=== PATIENT | male | born 1970 | race Caucasian/White ===

== ENCOUNTER → 2017-07-22 | Outpatient (CLI) | payer BC ==
--- NOTE | 2017-07-22 17:17 | RAD ---
Right lower [facility] venous duplex study 07/22/2017 Clinical History: Right calf pain and swelling. Technique: Using a combination of real time ultrasound imaging and color-flow and pulse Doppler imaging techniques along with graded compression and augmentation, duplex evaluation of the deep venous system of the right lower extremity was performed. Multiple images were obtained. Findings: There is no sonographic evidence of deep venous thrombosis involving the visualized deep venous structures of right lower extremity. A 6.1 cm popliteal cyst is seen posterior to the right knee. 2 additional complex structures are seen within the medial superior right calf which measure 4.7 and 5.4 cm in size. They could represent extensions of the popliteal cyst inferiorly versus hematomas. Impression: There is no sonographic evidence of deep venous thrombosis involving the visualized venous structures of the right lower extremity.
== END | disposition home or self-care (01) ==
LOC: US 15:22
PROVIDERS: ATTEND Internal Medicine
DX: M79.661 Pain in right lower leg (principal)
CPT/HCPCS: 93971

== ENCOUNTER → 2021-06-18 | Outpatient (CLI) | payer BC ==
[~2021-06-18] MED LIST: AMLO-310 PO; CARV12.511 PO; CETI10TA74 PO; CRAN500T3 PO; GABA-585 PO; MULT-690 PO; OMEG-117 PO; OMEP40CA7 PO; SERT100T PO
--- NOTE | 2021-06-18 12:20 | PDOC1 ---
INITIAL PAIN CONSULT DATE OF SERVICE: DOS: DATE: 06/18/21 TIME: 12:13 CHIEF COMPLAINT: Chief Complaint: Low back and left lower extremity pain HISTORY OF PRESENT ILLNESS: 51-year-old male presents with history of pain low back left lower extremity for about 5 months not the result of any specific injury or accident that he is aware of is getting worse over time. 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 Patient scribes pain is constant sharp stabbing and throbbing the back radiating shooting in the lower extremity on the left side aching and burning changes during the day with activity worse with walking standing changing positions better with sitting or laying down but again wakes him from sleep. Patient been taking Aleve as well as ibuprofen both of which do decrease the pain by about 40% patient is a chiropractic treatment also exercise and using an inversion table at home which decreases the pain significantly. Patient reports his disability rating 0-10 10 being the worst is a 5 with him home responsibilities recreation occupation section here for with self-care social activity and 0 with life support activities. Patient did have MRI scan of the lumbar spine showing multilevel neuroforaminal encroachment most significant L4-5 and L5-S1 levels bilaterally. PAST MEDICAL HISTORY: PMH: Arthritis, hypertension, cigarette smoking quit 20 years ago, left kidney renal cell cancer PREVIOUS SURGERIES: Past Surgical Hx: Right knee meniscus repair CURRENT MEDICATIONS: Current Meds: Active Scripts Medications Dose Route/Sig Max Daily Dose Days Date Category Cranberry (Cranberry Extract) 500 Mg Tablet 1,500 Mg PO DAILY 06/18/21 Reported Zyrtec (Cetirizine Hcl) 10 Mg Tablet 1 Tab PO DAILY 06/18/21 Reported Centrum Silver Men Tablet (Multivit-Min/FA/Lycopen/Lutein) 1 Each Tablet 1 Each PO DAILY 06/18/21 Reported Fish Oil 1,200 mg Softgel ([place]-3/Dha/Epa/Fish Oil) 1 Each Capsule.dr 1 Cap PO BID 30 06/18/21 Reported Carvedilol (Carvedilol) 12.5 Mg Tablet 12.5 Mg PO BIDWMEALS 06/18/21 Reported Amlodipine-Valsartan 10-320 mg (Amlodipine/Valsartan) 1 Each Tablet 1 Tab PO DAILY 30 06/18/21 Reported Omeprazole 40 Mg Capsule. 1 Cap PO DAILY 06/18/21 Reported Zoloft (Sertraline Hcl) 100 Mg Tablet 100 Mg PO BID 06/18/21 Reported Gabapentin (Gabapentin) 100 Mg Capsule 100 Mg PO HS 06/18/21 Reported FAMILY HISTORY: Family Hx: Diabetes, heart disease SOCIAL HISTORY: Social Hx: Patient is alcohol occasionally maybe once or twice a month at the most quit smoking cigarettes many years ago chews tobacco and still continues to and has for 21 years is lives with his spouse has 2 children living at home and 2 grandchildren as well. 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 REVIEW OF SYSTEMS: ROS: Positive for those items mentioned in history of present illness, all systems are reviewed, otherwise negative ,and are complete full and well-documented on patient's chart. PHYSICAL EXAM: VS: Blood pressure is 162/97 pulse 70 respirations 18 temperature 98.1 F height is 6 feet 5 inches weight is 365 pounds PE: PHYSICAL EXAMINATION: GENERAL: The patient is awake, alert, oriented, appropriate, very pleasant in demeanor. HEENT: Shows normocephalic, atraumatic. Extraocular movements are intact and symmetrical. Oral cavity: Mucous membranes moist and pink. Dentition is intact. NECK: Shows anterior throat supple without palpable lymphadenopathy noted. Swallow reflex symmetrical. CHEST: Shows normal on inspection. Breath sounds are clear bilaterally, distant but no rales rhonchi or wheezes auscultated. HEART: Shows S1, S2 clear. No murmurs auscultated. ABDOMEN: Soft, nontender, nondistended, obese. No palpable organomegaly is noted. No rebound or guarding demonstrated. BACK: Shows spine grossly in the midline. Normal-appearing cervical lordotic curvature. There is slightly increased thoracic kyphosis, some minor flattening of the lumbar lordotic curvature. Lumbar paraspinous muscles show symmetrical on inspection, on palpation shows some moderate tenderness diffusely throughout the upper, middle and lower distribution of the paraspinous muscles bilaterally and also into the lower thoracic paraspinous musculature, firm and tender, but without specific trigger points, without radiation of pain. The patient has good rotational motion of the lumbar spine, both laterally as well as extension and flexion without significant difficulty. EXTREMITIES: Lower extremities show deep tendon reflexes 2+ in the patellar and tendo calcaneus tendons. Motor exam is 5 on a scale of 5 with right dorsiflexion, extension, quadriceps and hamstring flexion and 5/5 on the left. Peripheral pulses are 1+ posterior tibial. No peripheral edema is noted bilaterally. Lower extremities are warm and dry to touch, equal in color and appearance. Straight leg raise noted to be positive on the left at approximate 45 degrees, decreased with knee flexion, right side is negative. Gaenslen's and Sudhakar's maneuvers are negative bilateral as well. The patient is able to stand, stand on his toes without significant difficulty or loss of balance walks with a slight favoring gait does appear to favor the left lower extremity mildly with ambulation again not use any assistive devices using his walker to ambulate. SKIN: Shows warm and dry, good turgor. No edema. No sores, rashes or bruising throughout. IMPRESSION: Impression: 51-year-old male with 5-month history increasing pain low back left lower extremity in a radicular fashion MRI scan lumbar spine as noted Significant improvement with the use of inversion table and exercise Hypertension Arthritis Renal cell carcinoma Plan: Options were discussed with the patient including conservative management continued physical therapies and interventional techniques. We discussed techni ques using anatomical models as well as descriptions and patient will follow up following left nephrectomy. Patient would like to wait for recovery following nephrectomy planned in approximately 1 month. Patient will continue with inversion table and strengthening stretching exercises as well as oral analgesics as currently. ROSLYN HAM MD Jun 18, 2021 12:20
== END | disposition home or self-care (01) ==
LOC: PNCL 09:24
PROVIDERS: ATTEND Anesthesiology
DX: M54.5 Low back pain (principal); M79.605 Pain in left leg; C64.9 Malignant neoplasm of unspecified kidney, except renal pelvis; M19.90 Unspecified osteoarthritis, unspecified site; I10 Essential (primary) hypertension; Z79.899 Other long term (current) drug therapy; Z98.890 Other specified postprocedural states; Z82.49 Family history of ischemic heart disease and other diseases of the circulatory system; Z83.3 Family history of diabetes mellitus
CPT/HCPCS: G0463